=== PATIENT | female | born 1940 | race Asian ===

== ENCOUNTER 2024-10-09 14:08 | Emergency (ER) | payer MEDICARE, OTHER, SELFPAY ==
[2024-10-09 14:33] VITALS: BP 111/47
[2024-10-09 14:45] LABS: % Basophils 0.2 % (0-2); % Immature Granulocytes 0.2 % (0-0.5); % Lymphocytes 3.3 % (20.5-51.1); % Monocytes 2.5 % (1.7-9.3); % Neutrophils 93.8 % (42.2-75.2); Absolute Lymphocytes 0.3 10^3/uL (1.2-3.4); Absolute Monocytes 0.3 10^3/uL (0.1-0.6); Absolute Neutrophils 9.7 10^3/uL (1.4-6.5); Mean Corp Hgb Conc. 33.3 g/dL (33.0-37.0); Mean Corpuscular Hgb 30.1 pg (27.0-31.0); Mean Corpuscular Volume 90.3 fL (81.0-99.0); Mean Platelet Volume 9.9 fL (7.4-10.4); Nucleated Red Blood Cells % 0 %; Platelet Count 243 10^3/uL (130-400); Red Blood Cell Count 4.32 10^6/uL (4.20-5.40); Red Cell Dist. Width 13.9 % (11.5-14.5); White Blood Cell Count 10.3 10^3/uL (4.8-10.8)
[2024-10-09 14:59] LABS: ALT (SGPT) 16 U/L (0-35); AST (SGOT) 24 U/L (14-36); Albumin 4.4 g/dl (3.5-5.0); Alkaline Phosphatase 69 U/L (38-126); Blood Urea Nitrogen 20 mg/dl (7-17); Calcium 9.7 mg/dl (8.4-10.2); Carbon Dioxide 27 mmol/L (22-30); Chloride 100 mmol/L (98-107); Glucose 202 mg/dl (70-99); Potassium 4.5 mmol/L (3.5-5.1); Sodium 139 mmol/L (135-145); Total Bilirubin 0.4 mg/dl (0.2-1.3); Total Protein 7.3 g/dl (6.3-8.2); eGFR 55.21
[2024-10-09 15:00] VITALS: BP 121/53
[2024-10-09 15:11] LABS: Troponin I < 0.012 ng/ml
--- NOTE | 2024-10-09 15:29 | ED.GENMED ---
History of Present Illness
General
Chief Complaint: Abdominal Symptoms
Source: family (Patient's grandson at bedside-translating) and ambulance crew
Exam Limitations: dementia
Time Seen by Provider: 10/09/24 14:57
Nursing documentation reviewed up to this point in time: agreed with
History of Present Illness
History of Present Illness:
Patient is an 84-year-old female with history dementia, GERD, previous CVA presenting to the emergency department from adult daycare after reported episode of chest pain and vomiting. Patient unable to contribute much to history given dementia
however patient's family at bedside also translating for patient. I did also contact the adult daycare and spoke with a witness of the event today.
Apparently�patient was sitting down just prior to lunch when she had an episode of forceful vomiting. Approximately 10 minutes following vomiting episode�patient communicated that she was having pressure in her chest. Patient seemed slightly more
confused than her baseline temporarily following the vomiting although improved by time she was in the ambulance.
By arrival to emergency department�patient is without any current symptoms. She denies any chest pain, shortness of breath, nausea, abdominal pain, lightheadedness/dizziness. No severe back pain. Per family�patient appears at her baseline mental
status.
Past History
Past History
ED Past Medical History: GERD, Hypercholesterolemia and Other (Glaucoma)
Social History
Tobacco: Non-smoker
Alcohol: None
Drug: None
Personal:
Living: with family
Review of Systems
Review of Systems
Allergies reviewed?: Yes
All Other Systems: ROS reviewed and negative except as documented in HPI and ROS
Phy Exam
Physical Exam
Physical Exam:
Vitals: Patient's vital signs are stable. Afebrile
General: Patient is resting comfortably, in no acute distress
Skin: Warm and dry, no rashes or lesions
Head: Normocephalic, atraumatic
Eyes: Sclera nonicteric. EOMs intact. No nystagmus.
Throat: Protecting airway
Neck: Normal ROM, no cervical spine tenderness, no meningismus
Cardiac: Regular rate and rhythm, no murmurs.
Pulm: Normal respiratory effort, no wheezes, rales, rhonchi heard on exam.
Abdomen: Abdomen soft. No abdominal tenderness.
Extremities: No evidence of cyanosis or edema. Palpable equal distal pulses bilaterally. Sensation fully intact
Neuro: AAOx 1 to person, not place or time. Follows commands. No facial droop. No appreciable dysarthria. Moving all extremities.
Psychiatric: Normal affect.
Course
Orders/Labs/Results
Orders:
Orders
10/09/24 14:21
Electrocardiogram (*1) Urgent
Reason for Study: Chest Pain
Cardiac Monitoring- Treatment ONCE
EKG- Treatment ONCE
IV Insert/Care/Rem.- Treatment PRN
O2 Therapy [RESP] Urgent
Titrate/Wean O2 to maintain O2 sat greater than (%): 90
Special Instructions: Maintain sats >/=90%
Pulse Ox/spot Check [RESP] Urgent
Quantity: 1
Special Instructions: ON ROOM AIR
10/09/24 14:34
Complete Blood Count/With Diff Urgent
Comprehensive Metabolic Panel Urgent
Troponin I Urgent
10/09/24 15:27
CR Chest - 2 Views Urgent
Comment:
Reason For Exam: chest pain, vomiting
10/09/24 17:35
Electrocardiogram (*1) Urgent
Reason for Study: Chest Pain
EKG- Treatment ONCE
10/09/24 17:56
Troponin I Urgent
Abnormal Lab Results
10/09/24
14:34
Absolute Neuts (auto) 9.7 H 10^3/uL
(1.4-6.5)
Absolute Lymphs (auto) 0.3 L 10^3/uL
(1.2-3.4)
Neutrophils % 93.8 H %
(42.2-75.2)
Lymphocytes % 3.3 L %
(20.5-51.1)
BUN 20 H mg/dl
(7-17)
Glucose 202 H mg/dl
(70-99)
10/09/24 14:34
10/09/24 14:34
Vital Signs
Initial and Last Documented VS:
Initial Vital Signs
Pulse Resp Pulse Ox
84 16 99
10/09/24 14:21 10/09/24 14:21 10/09/24 14:21
Last Documented Vital Signs
Temp Pulse Resp BP Pulse Ox
99.2 F 74 18 118/59 99
10/09/24 14:33 10/09/24 19:30 10/09/24 19:30 10/09/24 19:00 10/09/24 19:30
MDM/Problems Addressed
Differential Diagnosis Includes:
Not limited to: Vasovagal response, GERD, gastritis, acute coronary syndrome, etc.
MDM/Problems Addressed:
84-year-old female with history as documented presenting with episode of vomiting and reported chest pain approximate 1 hour prior to arrival. History difficult to obtain given patient's history of dementia although family at bedside who report she
is at her baseline mental status. Patient without current complaints by my assessment. Vital stable. Physical exam as above. No focal neurologic deficits noted. No appreciable dysarthria. Cardio/pulmonary assessment unremarkable. Abdomen soft
and nontender. Basic labs initiated without any clinically significant abnormalities. Initial troponin undetectable. EKG without acute ischemic changes. Symptoms most consistent with likely vasovagal response. Other considerations would be
GERD, gastritis. Lower suspicion for ACS although will trend troponin. Do not suspect central process as patient is without any focal neurologic deficits and is at her baseline mental status. Will closely monitor and reassess.
Update: Chest x-ray obtained without any acute abnormalities. Repeat troponin undetectable. Patient has remained stable in the emergency department without any symptoms or episodes of vomiting. Troponin negative x 2�very low suspicion for acute
coronary syndrome. Family states she remains at her baseline mental status. Ultimately�suspect vasovagal response. Low suspicion for central process. Patient's family lives with her and states he will keep a very close eye on her at home and
return with any changes or new symptoms. Very strict return precautions discussed. They will follow closely with primary care, as well. This case was discussed with the attending physician.
Chronic conditions affecting care:
Dementia
Acute Exacerbation and/or Progression of Chronic Illness:
N/A
*Radiology
Radiology exam reviewed: preliminary read by ED provider (Chest x-ray reviewed by me-no acute abnormalities) and radiology read reviewed
*Pulse Oximetry
Patient hypoxic: no
*EKG
Interpreted by ED Provider?: Yes
EKG Intrepretation Date: 10/09/24
Interpretation: normal
Comparison EKG: changes noted
Heart Rate: 79
Rate: normal
Rhythm: sinus
Interval: normal interval
QRS Pattern: normal QRS
Ischemia: non-specific ST changes (Nonspecific T wave changes)
*Critical Care Note
Total Time (30-74mins, 75-104mins- exclusive of procedures): Not Applicable
Patient Management
Escalation/DeEscalation of care consider admission/obs:
Considered admission although troponin negative x 2 at baseline mental status�low suspicion for central process, patient stable for discharge home.
ED Attending Note
-
Portions of this chart may have been created with voice recognition software.� Occasional wrong word or��sound alike� substitutions may have occurred due to the inherent limitations of voice recognition software.
Discharge Plan
Departure
Patient Disposition: Home (Routine Discharge)
Date of Disposition: 10/09/24
Time of Disposition: 19:29
Patient with high blood pressure during this ER visit?: No
Condition: Good
Covid-19: Not Applicable
Discharge Problem:
Chest pain, Vomiting
Instructions: Nausea and Vomiting, Adult (DC), Chest Pain
Prescriptions:
No Action
lovastatin 40 MG tablet
40 mg PO HS
omeprazole 40 MG capsule,delayed release(DR/EC)
40 mg PO DAILY
brimonidine-timolol [Combigan] 1 DROP drops
1 drp OP BID
Patient Comments:
1 drop both eyes BID
Referrals:
Delio Turk MD [Family Provider] - Follow up in 2-3 days
Activity Restrictions/Additional Instructions:
Return to the emergency department with any fevers, changes in mental status, repetitive vomiting, signs of severe dehydration, chest pain, shortness of breath, worsening current symptoms, or any other concerns
-As discussed�it is important to stay well-hydrated. You should follow a bland diet over the next 2 days and slowly advance as tolerated
-You should follow closely with the primary care doctor for further evaluation/management
Monitor symptoms very closely return to the emergency department with any acute worsening/new symptoms or any other concerns
Interventions
Interventions:
*Risk Screen - Suicide Last Done: 10/09/24 14:21
*General Assessment Last Done: 10/09/24 14:21
*Neglect/Abuse Screening Last Done: 10/09/24 14:21
ED- Fall Risk Assessment Last Done: 10/09/24 16:15
*ED COVID-19 Vaccine History Last Done: 10/09/24 14:21
*Nursing Disposition Last Done: 10/09/24 19:54
JD-Mwkaxa-Vceksrtuef Assessment Last Done: 10/09/24 16:15
Discharge Date and Time
Discharge Date/Time: 10/09/24 19:54
Print Language: CITIZEN OF [place]
[2024-10-09 16:00] VITALS: BP 123/53
[2024-10-09 17:54] VITALS: BP 119/52
[2024-10-09 18:00] VITALS: BP 105/51
[2024-10-09 18:30] LABS: Troponin I < 0.012 ng/ml
[2024-10-09 19:00] VITALS: BP 118/59
== END 2024-10-09 19:54 | disposition home or self-care (01) ==
LOC: EMR 14:08
PROVIDERS: Physician Assistant; EMERGENCY PHYSICIAN Emergency Medicine; FAMILY PHYSICIAN Internal Medicine
DX: R07.89 Other chest pain (principal); R11.10 Vomiting, unspecified; F03.90 Unspecified dementia, unspecified severity, without behavioral disturbance, psychotic disturbance, mood disturbance, and anxiety; K21.9 Gastro-esophageal reflux disease without esophagitis; E78.00 Pure hypercholesterolemia, unspecified; H40.9 Unspecified glaucoma; Z86.73 Personal history of transient ischemic attack (TIA), and cerebral infarction without residual deficits
CPT/HCPCS: 99285; 94760; 71046; 80053; 84484; 85025; 93005

== ENCOUNTER 2024-10-12 18:47 | Observation (INO) | payer MEDICARE, OTHER, MEDICAID, SELFPAY ==
[2024-10-12] VITALS (10 sets, daily range): BP systolic 114–163; BP diastolic 41–96; BMI 19.4; BMI 22.1
--- NOTE | 2024-10-12 14:20 | ED.GENMED ---
History of Present Illness
General
Chief Complaint: Hallucinations
Time Seen by Provider: 10/12/24 13:56
History of Present Illness
History of Present Illness:
Patient is an 84-year-old female who presents from adult day care with altered mental status. Patient is unable to provide any history as she has a history of dementia. Per records, patient has been hallucinating and not acting herself today. No
other information is available.
Past History
Past History
ED Past Medical History: GERD, Hypercholesterolemia and Other (Glaucoma)
Social History
Tobacco: Non-smoker
Alcohol: None
Drug: None
Personal:
Living: with family
Phy Exam
Physical Exam
Physical Exam:
GENERAL APPEARANCE: Elderly female, awake and alert
EYES lids/conjunctiva normal
EARS/NOSE/THROAT Mucous membranes moist, uvula midline without oral pharyngeal erythema, exudate or swelling
HEAD/NECK normocephalic atraumatic, neck is supple.
RESPIRATORY respiratory effort normal, speaks in full sentences, no accessory muscle use. Lungs clear to auscultation without rhonchi, wheezes, rales
CARDIAC Regular rate and rhythm, no edema.
ABDOMINAL Soft, ND/NT. No pulsatile masses on exam, rebound tenderness, Chang sign or pain over Mcburney's point.
MUSCLES/EXTREMITIES No abnormal range of motion, no swelling.
SKIN Warm, pink and dry. No rashes
NEUROLOGICAL patient is not answering questions but she is tracking. She is moving all 4 extremities. She has no obvious cranial nerve deficits.
Course
Orders/Labs/Results
Orders:
Orders
10/12/24 14:11
Electrocardiogram (*1) Urgent
Reason for Study: Other
Other Reason for Exam: sepsis
CR Chest - 2 Views Urgent
Comment:
Reason For Exam: altered mental status
10/12/24 14:12
0.9% Sodium Chloride 1000 ml [Nss] 1,000 ml IV BOLUS
10/12/24 14:47
CT Head W/o Iv Contrast Urgent
Comment:
Reason For Exam: altered mental status
10/12/24 15:18
COVID-19 Antigen Urgent
Source: Nasal Swab
Complete Blood Count/With Diff Urgent
Comprehensive Metabolic Panel Urgent
Lactic Acid Q4H
Comment: CANCEL 2nd LACTIC ACID IF 1st LACTIC ACID IS LESS THAN 2
Troponin I Urgent
Blood Culture Q30M
ERLIN Source: Blood/Venous
Specimen Description:
Influenza A+B Rapid Molecular Urgent
ERLIN Source: Nasal Swab
Specimen Description:
10/12/24 15:51
Urinalysis Reflex To Culture Urgent
Date Specimen was Collected: 10/12/24
Time Specimen was Collected: 15:50
Urine Microscopic Reflex Cult Urgent
Blood Culture Q30M
ERLIN Source: Blood/Venous
Specimen Description:
Urine Culture Urgent
ERLIN Source: U
Specimen Description:
Date Specimen was Collected: 10/12/24
Time Specimen was Collected: 15:50
10/12/24 16:28
CefTRIAXone [Rocephin] 1,000 mg IV NOW STA
10/12/24 18:15
Lactic Acid Q4H
Comment: CANCEL 2nd LACTIC ACID IF 1st LACTIC ACID IS LESS THAN 2
Abnormal Lab Results
10/12/24 10/12/24
15:18 15:51
Carbon Dioxide 21 L mmol/L
(22-30)
BUN 20 H mg/dl
(7-17)
Glucose 139 H mg/dl
(70-99)
Lactic Acid 2.2 H mmol/L
(0.7-2.0)
Ur Occult Blood Reflex 3+ A
(Negative)
Urine Nitrite (Reflex) Positive A
(Negative)
Leukocyte Esterase Rfl 2+ A
(Negative)
Urine WBC (Reflex) 11-15 A /HPF
(0-5)
Urine Bacteria (Reflex) Many A
(Negative)
Urine Albumin (Reflex) 2+ A
(Neg - Trace)
10/12/24 15:18
10/12/24 15:18
Vital Signs
Initial and Last Documented VS:
Initial Vital Signs
Temp Pulse Resp BP Pulse Ox
99.6 F 74 16 141/41 100
10/12/24 13:51 10/12/24 13:51 10/12/24 13:51 10/12/24 13:51 10/12/24 13:51
Last Documented Vital Signs
Temp Pulse Resp BP Pulse Ox
99.6 F 75 21 145/59 100
10/12/24 13:51 10/12/24 14:30 10/12/24 14:30 10/12/24 14:00 10/12/24 15:17
*Critical Care Note
Total Time (30-74mins, 75-104mins- exclusive of procedures): Not Applicable
ED Attending Note
ED Attending Note
ED Attending Note:
Patient presents to the emergency department with altered mental status from longterm. She is nontoxic-appearing and has a history of dementia but is off her baseline. Will rule out infectious, metabolic, traumatic etiology.
Workup notable for urinary tract infection. Patient given ceftriaxone, IV fluids. Will admit for further management
-
Portions of this chart may have been created with voice recognition software.� Occasional wrong word or��sound alike� substitutions may have occurred due to the inherent limitations of voice recognition software.
Discharge Plan
Departure
Prescriptions:
No Action
lovastatin 40 MG tablet
40 mg PO HS
omeprazole 40 MG capsule,delayed release(DR/EC)
40 mg PO DAILY
brimonidine-timolol [Combigan] 1 DROP drops
1 drp OP BID
Patient Comments:
1 drop both eyes BID
Referrals:
Turk,Delio Bran, MD [Family Provider] -
Interventions
Interventions:
*Risk Screen - Suicide Last Done: 10/12/24 15:58
*General Assessment Last Done: 10/12/24 15:58
*Neglect/Abuse Screening Last Done: 10/12/24 15:58
*ED COVID-19 Vaccine History Last Done: 10/12/24 15:58
ED-Suicide Risk Assessment Last Done: 10/12/24 16:02
ED- Neurological Assessment Last Done: 10/12/24 15:58
ED-Psychological Assessment Last Done: 10/12/24 15:58
Discharge Date and Time
Print Language: TUNISIAN
[2024-10-12] MEDS: NSS 1000 IV ×2 (15:31→22:03)
[2024-10-12 16:04] LABS: % Basophils 0.5 % (0-2); % Eosinophils 1.9 % (0-6); % Immature Granulocytes 0.3 % (0-0.5); % Monocytes 8.8 % (1.7-9.3); % Neutrophils 62.5 % (42.2-75.2); Absolute Eosinophils 0.1 10^3/uL (0-0.7); Absolute Lymphocytes 1.5 10^3/uL (1.2-3.4); Absolute Monocytes 0.5 10^3/uL (0.1-0.6); Absolute Neutrophils 3.7 10^3/uL (1.4-6.5); Hematocrit 37.1 % (37.0-47.0); Hemoglobin 12.6 g/dL (12.0-16.0); Lactic Acid 2.2 mmol/L (0.7-2.0); Mean Corpuscular Hgb 29.9 pg (27.0-31.0); Mean Corpuscular Volume 87.9 fL (81.0-99.0); Mean Platelet Volume 10.1 fL (7.4-10.4); Nucleated Red Blood Cells % 0 %; Platelet Count 232 10^3/uL (130-400); Red Blood Cell Count 4.22 10^6/uL (4.20-5.40); White Blood Cell Count 5.9 10^3/uL (4.8-10.8)
[2024-10-12 16:06] LABS: Urine Albumin 2+ (Neg - Trace); Urine Bilirubin Negative (Negative); Urine Character Cloudy (Clear); Urine Color Yellow; Urine Glucose Negative (Negative); Urine Ketone Negative (Negative); Urine Leukocyte 2+ (Negative); Urine Nitrite Positive (Negative); Urine Occult Blood 3+ (Negative); Urine Urobilinogen 1+ (Neg - 1+); Urine pH 6.5 (5.0-9.0)
[2024-10-12 16:10] LABS: COVID-19 Antigen Negative (Negative)
[2024-10-12 16:15] LABS: ALT (SGPT) 16 U/L (0-35); AST (SGOT) 29 U/L (14-36); Albumin 4.3 g/dl (3.5-5.0); Alkaline Phosphatase 87 U/L (38-126); Blood Urea Nitrogen 20 mg/dl (7-17); Calcium 9.6 mg/dl (8.4-10.2); Carbon Dioxide 21 mmol/L (22-30); Chloride 104 mmol/L (98-107); Estimated Creatinine Clearance 28 ml/min; Glucose 139 mg/dl (70-99); Potassium 4.5 mmol/L (3.5-5.1); Sodium 138 mmol/L (135-145); Total Bilirubin 0.6 mg/dl (0.2-1.3); eGFR > 60.00
[2024-10-12 16:16] LABS: Troponin I < 0.012 ng/ml
[2024-10-12 16:16] LABS: Urine Bacteria Many (Negative); Urine Red Blood Cell 0-2 /HPF (0-2); Urine Squamous Cell 0-2 /LPF (Few)
[2024-10-12] MEDS: ROCEPHIN 1000 MG IV (16:35)
--- NOTE | 2024-10-12 17:31 | HPS.HSE ---
Family Physician
-
Family Physician: Delio Turk
Chief Complaint
-
confuison increase in baseline dementia suprapubic pain
History of Present Illness
84-year-old female from adult daycare with altered mental status however patient has history of dementia. They states she was not acting herself today she was wandering around mumbling. Some staff on the bus states she was also screaming on the
bus and argumentative which she is normally never. She was seen in the ER 4 days ago on Tuesday complaining of chest pain and vomiting with a negative workup however was told to bring her back if her mental status had changed. She has past medical
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
Medical History
Past Medical History
Past Medical History: Reports Other
Additional Past Medical History:
advanced dementia with wandering,
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
GERD,
HLD
glaucoma
Vegetarian does not eat eggs but will eat milk and cheese
Past Surgical History: Reports Other (Grandson unsure)
Social History
Tobacco: Non-smoker
Alcohol: None
Drug: None
Personal: Single
Living: With Family
Employment: Retired
Family History
Family History: Unable to Obtain
Allergies / Home Medications
Allergies reflects when Allergies were last updated in [employer].
Home Medications with original date entered in [employer]
Allergy/Medication List:
Allergies
Allergy/AdvReac Type Severity Reaction Status Date / Time
baclofen Allergy Mild Nausea Verified 10/12/24 15:15
Home Medications
lovastatin 40 mg tablet 40 mg PO HS 07/14/12
acetaminophen 650 mg tablet,extended release (Tylenol 8 Hour) 1,300 mg PO BIDPRN PRN mild pain 10/12/24
clopidogrel 75 mg tablet (Plavix) 75 mg PO DAILY 10/12/24
diclofenac sodium 1 % topical gel 0 g topical DAILYPRN PRN mild pain 10/12/24
dorzolamide 22.3 mg-timolol 6.8 mg/mL eye drops (Cosopt) 1 drp BOTH EYES BID 10/12/24
lisinopril 40 mg tablet 40 mg PO HS 10/12/24
pantoprazole 40 mg tablet,delayed release (Protonix) 40 mg PO DAILY 10/12/24
rosuvastatin 40 mg tablet (Crestor) 40 mg PO HS 10/12/24
sennosides 8.6 mg-docusate sodium 50 mg tablet (Senna-S) 1 tab-cap PO HS 10/12/24
therapeutic multivitamin 1 tab PO DAILY 10/12/24
Review of Systems
-
History Source: Patient and Family (Grandson at bedside)
A 12 point ROS was completed and negative except as noted: Yes
Constitutional: Reports Other (Increased confusion was screaming, argumentative today, wandering not acting herself at daycare); Denies Fever or Fatigue
EENT: Denies Sore Throat or Runny Nose
Respiratory: Denies Cough or Trouble Breathing
Cardiac: Denies Chest Pain, Diaphoresis, Palpitations or Syncope
Abdomen/GI: Reports Abdominal Pain (Suprapubic tenderness on palpation); Denies Nausea, Vomiting, Diarrhea or Constipated
: Reports Incontinence (Chronic urinary and stool secondary to dementia); Denies Dysuria
Musculoskeletal: Denies Joint Pain or Edema
Skin: Denies Itching or Rash
Neurological: Denies Headache
Endocrine: Reports No Symptoms
Hematologic/Lymphatic: Reports No Symptoms
Psych: Reports Calm
Physical Exam
Vital Signs
Vital Signs
Temp Pulse Resp BP Pulse Ox
99.6 F 75 21 145/59 100
10/12/24 13:51 10/12/24 14:30 10/12/24 14:30 10/12/24 14:00 10/12/24 15:17
Physical Exam
General: Conversant (With family in [facility]) and Other (Patient in bed pleasant speaking in [place] language able to joke and laugh with family and myself stating to her family I do not speak any Senegalese after I stated I do not speak any gujrati);
No Fever or Chills
HEENT: NormoCephalic, Anicteric, Moist mucous membranes, PERRLA, Lydia Conjunctivae and No Ptosis
Respiratory: Clear; No Wheezes, Rales or Rhonchi
Cardiac: S1/S2 and Regular Rhythm; No Murmur, Rub, Gallop or Peripheral Edema
GI: Soft, Non Distended, Normal Bowel Sounds, Tender (Suprapubic) and No Hepatosplenomegaly
Rectal: Deferred by Provider
Genito-urinary: Deferred by me
Musculoskeletal: No Clubbing, No Cyanosis and No Edema
Skin: Warm and Dry; No Rash or Jaundice
Neuro: Awake, Alert (Patient in bed pleasant speaking in [place] language able to joke and laugh with family and myself stating to her family I do not speak any Senegalese after I stated I do not speak any gujrati), No Motor Deficits (Moving all
extremities in bed) and No Sensory Deficits; No Slurred Speech, Facial Droop, Tremors or Sedated
Psych: Calm
Laboratory Results
-
10/12/24 15:18
10/12/24 15:18
Laboratory Results
Lactic Acid 2.2 mmol/L (0.7-2.0) H 10/12/24 15:18
Total Bilirubin 0.6 mg/dl (0.2-1.3) 10/12/24 15:18
AST 29 U/L (14-36) 10/12/24 15:18
ALT 16 U/L (0-35) 10/12/24 15:18
Alkaline Phosphatase 87 U/L (38-126) 10/12/24 15:18
Troponin I < 0.012 ng/ml 10/12/24 15:18
Data Reviewed
-
CT Scan: Report Reviewed by me
Lab Data: Labs Reviewed by me
Impression/Plan
-
Impression/plan:
Observation MedSurg
Symptomatic UTI with suprapubic pain
Limited ROS due to dementia
COVID flu negative
UA positive nitrate, +2 leukocyte +3 blood, many bacteria
-Send urine culture
-IV Rocephin
-IV NSS 1 L given in ER, will continue IV NSS 60 cc/h
CXR: Extremely low lung volumes. No focal parenchymal opacification to suggest pneumonia
CVA hx x2 10 years ago
-Continue Plavix 75 mg daily, lovastatin 40 mg at bedtime, Crestor [address] head: focal area of CSF density involving the left lentiform nucleus, extending superiorly to involve the avila radiata and the head and body of the left caudate nucleus, compatible with old infarction.
Dilation of the adjacent left lateral ventricle compatible with hydrocephalus ex vacuo.
Moderate atrophy
#Dementia advanced-patient speaks Gujarati
-Her typical dementia is short-term however asks repetitive questions will do well on where is my baby attempts every night to get out of bed
-Patient wanders at night needs assist with all ADLs
Must have soft diet no eggs meat but she will eat cheese and milk
-Will add melatonin 5 mg tonight due to insomnia with wandering and as needed Benadryl for increased agitation
#HTN
BP 114/77
Continue lisinopril 40 mg at bedtime
#GERD
-Continue Protonix 40 mg daily
#HLD
-Continue lovastatin 40 mg at bedtime, Crestor 40 mg at bedtime
#Glaucoma
-Continue Cosopt drops
#Constipation
Continue senna S 1 capsule at bedtime
DVT prophylaxis
Subcu heparin
Full code
--- NOTE | 2024-10-12 18:24 | W.PN.UPDATE ---
Update Note
Progress Note Update
Ms. Pool is an 84-year-old Gujarati speaking female with a medical history of CVA, GERD, and dementia who presents from adult daycare with mental status change with agitation. Family was present at bedside and contributed significantly to HPI.
Apparently she was argumentative with staff, yelling, and wandering. Of note, she was recently seen in the ER for days prior to this presentation with complaints of chest pain and vomiting. ACS and acute CVA were ruled out. Gastritis with
suspected. She was discharged home with instructions to family to return if she had mental status changes or signs of dehydration. In the emergency department today she was hemodynamically stable. Labs were remarkable for a UA with pyuria and
bacteriuria. Lactic acid was mildly elevated at 2.2. She appeared slightly dry on exam. She was given a 1 L bolus of normal saline. She has been admitted for further evaluation and management of acute mental status change.
Gen-awake and alert, NAD
HEENT-NC, AT, anicteric, dry oral mm
Neck-supple
CV-reg, no M, +S1/S2
Lungs-clear B/L
Abd-soft, mild suprapubic TTP, ND
Musculoskeletal-no edema, no deformity, decreased muscle bulk throughout
Skin-warm and dry
Neuro-grossly non-focal
Psych-calm, cooperative
Acute mental status change:
-Suspect due to acute infection in the setting of underlying dementia
-Likely due to UTI, also gastroenteritis is a possibility
-Has been given a 1 L bolus of normal saline, can hold further IV fluids for now
-Continue antibiotic treatment with ceftriaxone, follow-up urine cultures
-Follow-up repeat lactic acid
-Avoid oversedation, could use melatonin and/or Benadryl for sleep aid
[2024-10-12] MEDS: COSOPT EYE DROPS 1 DROP BOTH EYES (21:51)
[2024-10-12] MEDS: CRESTOR 10 MG PO (21:51)
[2024-10-12] MEDS: SENOKOT-S 1 TABLET PO (21:51)
[2024-10-12] MEDS: MELATONIN 5 MG PO (21:52)
[2024-10-12] MEDS: ZESTRIL 40 MG PO (21:52)
[2024-10-12] MEDS: HEPARIN 5000 UNITS SC (21:52)
[2024-10-12] MEDS: BENADRYL 25 MG PO (21:54)
[2024-10-13] MEDS: DESYREL 12.5 MG PO (00:11)
[2024-10-13 01:47] LABS: Lactic Acid 0.9 mmol/L (0.7-2.0)
--- NOTE | 2024-10-13 03:57 | PTCARENOTE ---
Pt admitted to [facility] from ED. Pt with hx of dementia, confused at baseline. Pt does not speak serbian. Family staying at bedside. Pt afebrile, VSS. Purewick removed. No s/s of pain. Bed in lowest position. Family oriented to room. Per
physician note, plan to hold further IVF at this time. Discussed with PST MANAGER and IVF stopped. Bed alarm in place.
[2024-10-13 06:48] LABS: Hematocrit 32.6 % (37.0-47.0); Hemoglobin 11.1 g/dL (12.0-16.0); Mean Corpuscular Hgb 30.4 pg (27.0-31.0); Mean Corpuscular Volume 89.3 fL (81.0-99.0); Mean Platelet Volume 10.2 fL (7.4-10.4); Platelet Count 193 10^3/uL (130-400); Red Blood Cell Count 3.65 10^6/uL (4.20-5.40); White Blood Cell Count 4.8 10^3/uL (4.8-10.8)
[2024-10-13 07:00] VITALS: BP 135/53
[2024-10-13 07:17] LABS: ALT (SGPT) 13 U/L (0-35); AST (SGOT) 24 U/L (14-36); Albumin 3.5 g/dl (3.5-5.0); Alkaline Phosphatase 59 U/L (38-126); Blood Urea Nitrogen 14 mg/dl (7-17); Calcium 8.8 mg/dl (8.4-10.2); Carbon Dioxide 23 mmol/L (22-30); Chloride 108 mmol/L (98-107); Estimated Creatinine Clearance 25 ml/min; Glucose 110 mg/dl (70-99); Sodium 140 mmol/L (135-145); Total Bilirubin 0.6 mg/dl (0.2-1.3); Total Protein 6.2 g/dl (6.3-8.2); eGFR 55.21
[2024-10-13] MEDS: PLAVIX 75 MG PO (08:14)
[2024-10-13] MEDS: COSOPT EYE DROPS 1 DROP BOTH EYES (08:14)
[2024-10-13] MEDS: THERAGRAN 1 TABLET PO (08:14)
[2024-10-13] MEDS: PROTONIX 40 MG PO (08:14)
[2024-10-13] MEDS: HEPARIN 5000 UNITS SC (08:14)
--- NOTE | 2024-10-13 12:31 | W.DCSUMMARY ---
Discharge Summary
Discharge Data
Date of Admission: 10/12/24
Date of Discharge: 10/13/24
-
Pending Results: No
Hospital Course
Ms. Pool is an 84-year-old [place]jar[place] speaking female with a medical history of CVA, GERD, and dementia who presents from adult daycare with mental status change with agitation. Family was present at bedside and contributed significantly to HPI.
Apparently she was argumentative with staff, yelling, and wandering. Of note, she was recently seen in the ER 4 days prior to this presentation with complaints of chest pain and vomiting. ACS and acute CVA were ruled out. Gastritis with
suspected. She was discharged home with instructions to family to return if she had mental status changes or signs of dehydration. In the emergency department today she was hemodynamically stable. Labs were remarkable for a UA with pyuria and
bacteriuria. Lactic acid was mildly elevated at 2.2. She appeared slightly dry on exam. She was given a 1 L bolus of normal saline and admitted for further evaluation and management of acute mental status change. She was started on ceftriaxone
for treatment of presumed urinary tract infection. Her mental status waxed and waned. Family remained at bedside overnight. Patient was intermittently agitated and confused overnight but calm down and then was able to sleep after given a dose of
trazodone. Her lactic acid resulted within normal limits on repeat labs. She remained hemodynamically stable throughout her hospitalization. She does continue to have waxing and waning altered mental status which is most likely secondary to
progressing dementia and contributed to by an acute urinary tract infection. She will be discharged to home with family to complete a course of antibiotics for urinary tract infection. She will also be given a prescription for trazodone to take at
night. She should follow-up closely with her primary care physician and possibly a neurologist/dementia specialist to further evaluate her dementia and discuss treatment options. This plan was discussed with family who are in agreement with plan
of care. They were instructed to monitor her for fevers and return to the emergency department if she were to become febrile.
Gen-awake and alert, NAD
HEENT-NC, AT, anicteric, dry oral mm
Neck-supple
CV-reg, no M, +S1/S2
Lungs-clear B/L
Abd-soft, mild suprapubic TTP, ND
Musculoskeletal-no edema, no deformity, decreased muscle bulk throughout
Skin-warm and dry
Neuro-grossly non-focal
Psych-calm, cooperative
Discharge Plan
-
Patient Disposition: Home (Routine Discharge)
Discharge Diagnosis/Procedures: Altered mental status, urinary tract infection
Diet: As tolerated
Activity: With assistance
Activity Restrictions/Additional Instructions:
Ms. Pool is an 84-year-old [place]jar[place] speaking female with a medical history of CVA, GERD, and dementia who presents from adult daycare with mental status change with agitation. Family was present at bedside and contributed significantly to HPI.
Apparently she was argumentative with staff, yelling, and wandering. Of note, she was recently seen in the ER 4 days prior to this presentation with complaints of chest pain and vomiting. ACS and acute CVA were ruled out. Gastritis with
suspected. She was discharged home with instructions to family to return if she had mental status changes or signs of dehydration. In the emergency department today she was hemodynamically stable. Labs were remarkable for a UA with pyuria and
bacteriuria. Lactic acid was mildly elevated at 2.2. She appeared slightly dry on exam. She was given a 1 L bolus of normal saline and admitted for further evaluation and management of acute mental status change. She was started on ceftriaxone
for treatment of presumed urinary tract infection. Her mental status waxed and waned. Family remained at bedside overnight. Patient was intermittently agitated and confused overnight but calm down and then was able to sleep after given a dose of
trazodone. Her lactic acid resulted within normal limits on repeat labs. She remained hemodynamically stable throughout her hospitalization. She does continue to have waxing and waning altered mental status which is most likely secondary to
progressing dementia and contributed to by an acute urinary tract infection. She will be discharged to home with family to complete a course of antibiotics for urinary tract infection. She will also be given a prescription for trazodone to take at
night. She should follow-up closely with her primary care physician and possibly a neurologist/dementia specialist to further evaluate her dementia and discuss treatment options. This plan was discussed with family who are in agreement with plan
of care. They were instructed to monitor her for fevers and return to the emergency department if she were to become febrile.
Referrals:
Delio Turk MD [Family Provider] -
Prescriptions:
New
melatonin 5 mg Tablet
5 mg PO HS 30 Days Qty: 30 0RF
cefuroxime axetil 250 mg tablet
250 mg PO BID 2 Days Qty: 4 0RF
trazodone 50 mg tablet
12.5 mg PO HS PRN (Reason: insomnia/ agitation) Qty: 10 0RF
Continued
lovastatin 40 MG tablet
40 mg PO HS
sennosides-docusate sodium [Senna-S] 8.6-50 mg Tablet
1 tab-cap PO HS
therapeutic multivitamin Tablet
1 tab PO DAILY
clopidogrel [Plavix] 75 mg Tablet
75 mg PO DAILY
acetaminophen [Tylenol 8 Hour] 650 mg Tablet Extended Release
1,300 mg PO BIDPRN PRN (Reason: mild pain)
pantoprazole [Protonix] 40 mg Tablet,Delayed Release (Dr/Ec)
40 mg PO DAILY
dorzolamide-timolol [Cosopt] 22.3-6.8 mg/mL Drops
1 drp BOTH EYES BID
lisinopril 40 mg Tablet
40 mg PO HS
rosuvastatin [Crestor] 40 mg Tablet
40 mg PO HS
diclofenac sodium 1 % Gel
0 g TOPICAL DAILYPRN PRN (Reason: mild pain)
Discharge Orders:
Discharge Patient (As Directed); Ordered 10/13/24
Ordered By: Ramses Almaraz
Discharge Date and Time
Print Language: MICRONESIAN
[2024-10-13 13:55] VITALS: BP 125/70
== END 2024-10-13 13:57 | disposition home or self-care (01) ==
LOC: 3 WEST ACU 18:47
PROVIDERS: Clinical Nurse Specialist Family Health; ADMITTING PHYSICIAN Internal Medicine; EMERGENCY PHYSICIAN Emergency Medicine; FAMILY PHYSICIAN Internal Medicine
DX: R41.82 Altered mental status, unspecified (principal); F03.92 Unspecified dementia, unspecified severity, with psychotic disturbance; F03.911 Unspecified dementia, unspecified severity, with agitation; K21.9 Gastro-esophageal reflux disease without esophagitis; E78.00 Pure hypercholesterolemia, unspecified; H40.9 Unspecified glaucoma; N39.0 Urinary tract infection, site not specified; R94.31 Abnormal electrocardiogram [ECG] [EKG]; I10 Essential (primary) hypertension; G47.00 Insomnia, unspecified; K59.00 Constipation, unspecified; Z86.73 Personal history of transient ischemic attack (TIA), and cerebral infarction without residual deficits; Z88.8 Allergy status to other drugs, medicaments and biological substances; Z79.02 Long term (current) use of antithrombotics/antiplatelets; Z60.3 Acculturation difficulty; Z11.52 Encounter for screening for COVID-19
CPT/HCPCS: 70450; 71046; 80053; 81003; 81015; 83605; 84484; 85025; 85027; 87040; 87077; 87086; 87186; 87502; 87811; 93005; 96374; 99285; G0378